=== PATIENT | male | born 1935 | race Caucasian/White ===

== ENCOUNTER 2018-08-13 11:05 | Inpatient (IN) | payer MEDICARE, OTHER ==
[~2018-08-13] VITALS: Ht 177.8 cm; Wt 68.8 kg
[~2018-08-13 11:05] MED LIST: ALBU8.5H5 INH; ALLO100T30 PO; ASPI-496; AZIT500T5 PO; BUDE10.2 INH; CARV12.52; CYAN100T PO; DILT240C PO; ERGO500017 PO; ESOM20CA PO; FLUT16SP NAS; FURO-93 PO; FURO20TA3 PO; KRIL1CAP9 PO; LORA10TA3 PO; METF500T17 PO; POTA20PA25 PO; PRED5TAB PO; SIMV20TA3 PO; TEMA15CA PO; UBID100C24 PO; VALS160T3; VALS1TAB22; WARF2.5T PO
[2018-08-13] MEDS ORDERED: WARF2TAB99 PO (11:24)
[2018-08-13] MEDS ORDERED: SODIUM CHLORIDE FLUSH 10ML SYR IVF ONE (11:30)
[2018-08-13] MEDS ORDERED: ASPIRIN 81 MG TABLET CHEW PO ONE (11:30)
[2018-08-13] MEDS ORDERED: ASPIRIN 81 MG TABLET CHEW ONE (11:51)
[2018-08-13] MEDS ORDERED: PRAV20TA2 PO (11:56)
[2018-08-13] MEDS ORDERED: PHOS250T PO (11:59)
[2018-08-13] MEDS ORDERED: EPLE25TA4 PO ×2 (12:00→12:32)
[2018-08-13] MEDS ORDERED: CHOL5000 PO (12:01)
[2018-08-13 12:15] LABS: BASOPHILS # (AUTO) 0.02 x10^3/uL (0-0.1); BASOPHILS % (AUTO) 0 % (0-1); EOSINOPHILS # (AUTO) 0.03 x10^3/uL (0-0.4); EOSINOPHILS % (AUTO) 0 % (1-7); LYMPHOCYTES # (AUTO) 0.43 x10^3/uL (1-3.4); LYMPHOCYTES % (AUTO) 4 % (22-44); MD NO; MEAN CORPUSCULAR HEMOGLOBIN 32.2 pg (27.5-34.5); MEAN CORPUSCULAR HGB CONC 32.4 g/dL (33.2-36.2); MEAN CORPUSCULAR VOLUME 99.3 fL (81-97); MONOCYTES # (AUTO) 0.43 x10^3/uL (0.2-0.8); MONOCYTES % (AUTO) 4 % (2-9); NEUTROPHILS % (AUTO) 91 % (42-75); PLATELET COUNT 247 x10^3/uL (130-400); RED BLOOD COUNT 4.53 x10^6/uL (4.38-5.82); RED CELL DISTRIBUTION WIDTH 16.8 % (9.4-14.8)
[2018-08-13 12:22] LABS: INTERNATIONAL NORMALIZED RATIO 3.15 (0.93-1.1)
[2018-08-13 12:24] LABS: ALANINE AMINOTRANSFERASE 58 U/L (12-78); ALBUMIN 3.3 g/dL (3.4-5.0); ANION GAP 8 mmol/L (5-15); CALCIUM 9.7 mg/dL (8.5-10.1); CHLORIDE 104 mmol/L (98-107); CREATININE 1.75 mg/dL (0.7-1.3)
[2018-08-13 12:29] LABS: ALKALINE PHOSPHATASE 283 U/L (45-117); TOTAL PROTEIN 6.8 g/dL (6.4-8.2); TROPONIN I 0.127 ng/mL (0.000-0.045)
[2018-08-13] MEDS ORDERED: SILD20TA2 PO (12:29)
[2018-08-13] MEDS ORDERED: FERR325T5 PO (12:29)
[2018-08-13] MEDS ORDERED: PRAV10TA2 PO (12:29)
[2018-08-13] MEDS ORDERED: ASCO250T4 PO (12:29)
[2018-08-13] MEDS ORDERED: FURO-92 PO (12:29)
[2018-08-13] MEDS ORDERED: LACT1CAP24 PO (12:29)
[2018-08-13] MEDS ORDERED: METF500T17 PO (12:29)
[2018-08-13] MEDS ORDERED: CYAN100014 PO (12:29)
[2018-08-13] MEDS ORDERED: METO25TA35 PO (12:30)
[2018-08-13 12:45] LABS: PROTHROMBIN TIME 31.9 Seconds (9.6-11.5)
[2018-08-13] MEDS ORDERED: FUROSEMIDE 40 MG/4 ML IV ONE (13:00)
[2018-08-13] MEDS ORDERED: FUROSEMIDE 40 MG/4 ML ONE (13:02)
[2018-08-13] MEDS ORDERED: SODIUM CHLORIDE FLUSH 10ML SYR IVF PRN (13:30)
[2018-08-13] MEDS ORDERED: NITROGLYCERIN 0.4 MG BOTTLE (25 TABS) SL PRN (14:00)
[2018-08-13] MEDS ORDERED: ALBUTEROL SULFATE 2.5 MG/3 ML NPPB PRN (15:00)
[2018-08-13 15:15] VITALS: BP 107/71
[2018-08-13] MEDS: ALBUTEROL SULFATE 2.5 MG/3 ML NPPB SCH ×2 (15:30→19:00)
[2018-08-13] MEDS ORDERED: CLOPIDOGREL 75 MG TABLET PO STA (16:40)
[2018-08-13] MEDS ORDERED: CLOPIDOGREL 75 MG TABLET PO ONE (17:00)
[2018-08-13] MEDS: ATORVASTATIN 40 MG TABLET PO SCH ×2 (18:48→21:00)
[2018-08-13] MEDS: BUDESONIDE 0.5 MG/2 ML INHA NPPB SCH (19:00)
[2018-08-13 19:42] VITALS: BP 111/60
[2018-08-13] MEDS ORDERED: PRAVASTATIN 20 MG TABLET PO SCH (21:00)
[2018-08-13] MEDS: LACTOBACILLUS CHEW TABLET PO SCH (21:00)
[2018-08-13] MEDS ORDERED: WARFARIN 2 MG TABLET PO-COUM SCH (21:00)
[2018-08-13] MEDS: FLUTICASONE NASAL SPRAY 16GM NAS SCH (21:25)
[2018-08-13] MEDS: SODIUM CHLORIDE FLUSH 10ML SYR IVF SCH (21:25)
[2018-08-13 22:30] VITALS: BP 98/63
[2018-08-14 00:58] VITALS: BP 120/76
[2018-08-14] MEDS: ALBUTEROL/IPRATROPIUM 2.5MG/0.5MG, 3 ML HHN SCH ×4 (02:17→22:12)
[2018-08-14 02:30] LABS: ALBUMIN 3.1 g/dL (3.4-5.0); ANION GAP 9 mmol/L (5-15); CALCIUM 9.7 mg/dL (8.5-10.1); CHLORIDE 106 mmol/L (98-107)
[2018-08-14 02:34] LABS: ALANINE AMINOTRANSFERASE 48 U/L (12-78); ALKALINE PHOSPHATASE 236 U/L (45-117); BILIRUBIN,TOTAL 1.1 mg/dL (0.2-1.0); CREATININE 1.53 mg/dL (0.7-1.3); TOTAL PROTEIN 6.4 g/dL (6.4-8.2)
[2018-08-14 02:55] LABS: INTERNATIONAL NORMALIZED RATIO 2.8 (0.93-1.1); PROTHROMBIN TIME 28.5 Seconds (9.6-11.5)
[2018-08-14 06:59] VITALS: BP 114/71
[2018-08-14] MEDS: CYANOCOBALOMIN 100MCG TABLET PO SCH (07:37)
[2018-08-14] MEDS: LACTOBACILLUS CHEW TABLET PO SCH ×2 (08:48→20:12)
[2018-08-14] MEDS ORDERED: FUROSEMIDE 20 MG TABLET PO SCH (09:00)
[2018-08-14] MEDS: FLUTICASONE NASAL SPRAY 16GM NAS SCH ×2 (09:07→20:12)
[2018-08-14] MEDS: CYANOCOBALAMIN 1,000 MCG TABLET PO SCH (09:07)
[2018-08-14] MEDS: CHOLECALCIFEROL 1,000 UNIT TABLET PO SCH (09:07)
[2018-08-14] MEDS: FERROUS SULFATE 325 MG TABLET PO SCH (09:07)
[2018-08-14] MEDS: FAMOTIDINE 20 MG TABLET PO SCH (09:08)
[2018-08-14] MEDS: ALLOPURINOL 100 MG TABLET PO SCH (09:08)
[2018-08-14] MEDS: METOPROLOL TARTRATE 25 MG TABLET PO SCH (09:08)
[2018-08-14] MEDS: SODIUM CHLORIDE FLUSH 10ML SYR IVF SCH ×2 (09:09→20:13)
[2018-08-14] MEDS: EPLERENONE 50 MG TABLET PO SCH (09:21)
[2018-08-14] MEDS: BUDESONIDE 0.5 MG/2 ML INHA NPPB SCH ×2 (09:42→22:12)
[2018-08-14 12:41] VITALS: BP 109/70
[2018-08-14 16:01] VITALS: BP 119/78
[2018-08-14] MEDS ORDERED: FUROSEMIDE 40 MG/4 ML IV ONE (16:30)
[2018-08-14 18:56] VITALS: BP 104/71
[2018-08-14] MEDS: ATORVASTATIN 40 MG TABLET PO SCH (20:12)
[2018-08-15 01:56] VITALS: BP 101/61
[2018-08-15] MEDS: ALBUTEROL/IPRATROPIUM 2.5MG/0.5MG, 3 ML HHN SCH ×4 (04:00→20:51)
[2018-08-15 05:16] LABS: INTERNATIONAL NORMALIZED RATIO 2.73 (0.93-1.1); PROTHROMBIN TIME 27.8 Seconds (9.6-11.5)
[2018-08-15 05:20] LABS: ALANINE AMINOTRANSFERASE 41 U/L (12-78); ALBUMIN 3.2 g/dL (3.4-5.0); ANION GAP 10 mmol/L (5-15); CALCIUM 8.9 mg/dL (8.5-10.1); CHLORIDE 103 mmol/L (98-107); CREATININE 1.31 mg/dL (0.7-1.3)
[2018-08-15 05:23] LABS: ALKALINE PHOSPHATASE 220 U/L (45-117); BILIRUBIN,TOTAL 0.9 mg/dL (0.2-1.0); TOTAL PROTEIN 6.3 g/dL (6.4-8.2)
[2018-08-15] MEDS: LACTOBACILLUS CHEW TABLET PO SCH ×2 (07:18→20:06)
[2018-08-15 07:33] VITALS: BP 103/67
[2018-08-15] MEDS: CYANOCOBALOMIN 100MCG TABLET PO SCH (07:47)
[2018-08-15] MEDS: CHOLECALCIFEROL 1,000 UNIT TABLET PO SCH (07:48)
[2018-08-15] MEDS: SODIUM CHLORIDE FLUSH 10ML SYR IVF SCH ×2 (07:51→20:06)
[2018-08-15] MEDS: FLUTICASONE NASAL SPRAY 16GM NAS SCH ×2 (07:53→20:05)
[2018-08-15] MEDS: CLOPIDOGREL 75 MG TABLET PO SCH (07:53)
[2018-08-15] MEDS: FERROUS SULFATE 325 MG TABLET PO SCH (07:53)
[2018-08-15] MEDS: EPLERENONE 50 MG TABLET PO SCH (07:54)
[2018-08-15] MEDS: ALLOPURINOL 100 MG TABLET PO SCH (07:54)
[2018-08-15] MEDS: METOPROLOL TARTRATE 25 MG TABLET PO SCH (07:54)
[2018-08-15] MEDS: CYANOCOBALAMIN 1,000 MCG TABLET PO SCH (07:55)
[2018-08-15] MEDS: FUROSEMIDE 20 MG TABLET PO SCH ×2 (07:55→20:05)
[2018-08-15] MEDS: FAMOTIDINE 20 MG TABLET PO SCH (07:56)
[2018-08-15] MEDS ORDERED: REGADENOSON 0.4 MG/5 ML SYRINGE ONE (08:59)
[2018-08-15] MEDS: BUDESONIDE 0.5 MG/2 ML INHA NPPB SCH ×2 (09:40→18:55)
[2018-08-15 13:12] VITALS: BP 98/63
[2018-08-15] MEDS ORDERED: PHYTONADIONE 10 MG/ML, 1ML SQ ONE (16:30)
[2018-08-15 20:04] VITALS: BP 94/61
[2018-08-15] MEDS: ATORVASTATIN 40 MG TABLET PO SCH (20:05)
[2018-08-16] VITALS (9 sets, daily range): BP systolic 70–120; BP diastolic 50–82
[2018-08-16] MEDS: ALBUTEROL/IPRATROPIUM 2.5MG/0.5MG, 3 ML HHN SCH ×4 (02:44→21:13)
[2018-08-16 05:57] LABS: CHLORIDE 103 mmol/L (98-107)
[2018-08-16 06:07] LABS: ALANINE AMINOTRANSFERASE 48 U/L (12-78); ALBUMIN 3.4 g/dL (3.4-5.0); ALKALINE PHOSPHATASE 259 U/L (45-117); ANION GAP 11 mmol/L (5-15); BILIRUBIN,TOTAL 1.2 mg/dL (0.2-1.0); CALCIUM 9.7 mg/dL (8.5-10.1); CREATININE 1.35 mg/dL (0.7-1.3); TOTAL PROTEIN 6.7 g/dL (6.4-8.2)
[2018-08-16 06:33] LABS: PROTHROMBIN TIME 20.6 Seconds (9.6-11.5)
[2018-08-16] MEDS: BUDESONIDE 0.5 MG/2 ML INHA NPPB SCH ×2 (07:48→21:13)
[2018-08-16] MEDS: CYANOCOBALAMIN 1,000 MCG TABLET PO SCH (08:39)
[2018-08-16] MEDS: SODIUM CHLORIDE FLUSH 10ML SYR IVF SCH ×2 (08:39→21:33)
[2018-08-16] MEDS: METOPROLOL TARTRATE 25 MG TABLET PO SCH (08:39)
[2018-08-16] MEDS: FUROSEMIDE 20 MG TABLET PO SCH ×2 (08:41→17:25)
[2018-08-16] MEDS: EPLERENONE 50 MG TABLET PO SCH (08:44)
[2018-08-16] MEDS: CHOLECALCIFEROL 1,000 UNIT TABLET PO SCH (08:47)
[2018-08-16] MEDS: CLOPIDOGREL 75 MG TABLET PO SCH (08:48)
[2018-08-16] MEDS: CYANOCOBALOMIN 100MCG TABLET PO SCH (08:48)
[2018-08-16] MEDS: FAMOTIDINE 20 MG TABLET PO SCH (08:48)
[2018-08-16] MEDS: FERROUS SULFATE 325 MG TABLET PO SCH (08:49)
[2018-08-16] MEDS: LACTOBACILLUS CHEW TABLET PO SCH ×2 (08:49→21:33)
[2018-08-16] MEDS: FLUTICASONE NASAL SPRAY 16GM NAS SCH ×2 (08:50→21:39)
[2018-08-16] MEDS: ALLOPURINOL 100 MG TABLET PO SCH (08:54)
[2018-08-16] MEDS ORDERED: ACETAMINOPHEN 325 MG TABLET PO PRN (16:00)
[2018-08-16] MEDS: DIPHENHYDRAMINE 25 MG CAPSULE PO PRN (21:33)
[2018-08-16] MEDS: ATORVASTATIN 40 MG TABLET PO SCH (21:33)
[2018-08-17 01:57] VITALS: BP 104/73
[2018-08-17] MEDS: ALBUTEROL/IPRATROPIUM 2.5MG/0.5MG, 3 ML HHN SCH ×4 (03:00→20:11)
[2018-08-17] MEDS ORDERED: ONDANSETRON 2MG/ML, 2ML IVPush PRN (05:00)
[2018-08-17 05:42] LABS: INTERNATIONAL NORMALIZED RATIO 1.75 (0.93-1.1); PROTHROMBIN TIME 18.2 Seconds (9.6-11.5)
[2018-08-17 05:47] LABS: ALBUMIN 3.3 g/dL (3.4-5.0); ANION GAP 9 mmol/L (5-15); CALCIUM 9.6 mg/dL (8.5-10.1); CHLORIDE 102 mmol/L (98-107)
[2018-08-17 05:51] LABS: ALANINE AMINOTRANSFERASE 49 U/L (12-78); ALKALINE PHOSPHATASE 271 U/L (45-117); BILIRUBIN,TOTAL 1.3 mg/dL (0.2-1.0); CREATININE 1.72 mg/dL (0.7-1.3); TOTAL PROTEIN 6.7 g/dL (6.4-8.2)
[2018-08-17 06:55] VITALS: BP 111/77
[2018-08-17] MEDS: BUDESONIDE 0.5 MG/2 ML INHA NPPB SCH ×2 (07:25→20:11)
[2018-08-17] MEDS: LACTOBACILLUS CHEW TABLET PO SCH ×2 (08:18→21:35)
[2018-08-17] MEDS: CYANOCOBALAMIN 1,000 MCG TABLET PO SCH (08:18)
[2018-08-17] MEDS: CHOLECALCIFEROL 1,000 UNIT TABLET PO SCH (08:18)
[2018-08-17] MEDS: FAMOTIDINE 20 MG TABLET PO SCH (08:18)
[2018-08-17] MEDS: CLOPIDOGREL 75 MG TABLET PO SCH (08:18)
[2018-08-17] MEDS: SODIUM CHLORIDE FLUSH 10ML SYR IVF SCH ×2 (08:19→21:34)
[2018-08-17] MEDS: METOPROLOL TARTRATE 25 MG TABLET PO SCH ×2 (08:20→08:42)
[2018-08-17] MEDS: CYANOCOBALOMIN 100MCG TABLET PO SCH (08:25)
[2018-08-17] MEDS ORDERED: SODIUM CHLORIDE 0.9% 1,000 ML IV ONE (08:29)
[2018-08-17] MEDS: FLUTICASONE NASAL SPRAY 16GM NAS SCH ×2 (08:33→21:37)
[2018-08-17] MEDS: ALLOPURINOL 100 MG TABLET PO SCH (08:33)
[2018-08-17] MEDS: FERROUS SULFATE 325 MG TABLET PO SCH (08:33)
[2018-08-17] MEDS: EPLERENONE 50 MG TABLET PO SCH (09:00)
[2018-08-17] MEDS: FUROSEMIDE 20 MG TABLET PO SCH ×2 (09:00→21:00)
[2018-08-17] MEDS ORDERED: TICAGRELOR 90 MG TABLET ONE (13:46)
[2018-08-17] MEDS ORDERED: FENTANYL PF 100 MCG/2ML ONE (13:46)
[2018-08-17] MEDS ORDERED: MIDAZOLAM 1 MG/ML, 5ML ONE (13:46)
[2018-08-17] MEDS ORDERED: VERAPAMIL 2.5 MG/ML, 2ML ONE (13:47)
[2018-08-17] MEDS ORDERED: LIDOCAINE-MPF 1%, 5ML ONE (13:47)
[2018-08-17] MEDS ORDERED: BIVALIRUDIN 250 MG ONE (13:47)
[2018-08-17 14:30] VITALS: BP 111/76
[2018-08-17] MEDS ORDERED: ACETAMINOPHEN 325 MG TABLET PO PRN (15:00)
[2018-08-17] MEDS ORDERED: SODIUM CHLORIDE 0.9% 1,000 ML IV SCH (15:00)
[2018-08-17 19:43] VITALS: BP 93/63
[2018-08-17] MEDS: ATORVASTATIN 40 MG TABLET PO SCH (21:35)
[2018-08-17 21:42] VITALS: BP 120/85
[2018-08-18 00:13] VITALS: BP 92/58
[2018-08-18] MEDS: DIPHENHYDRAMINE 25 MG CAPSULE PO PRN (01:09)
[2018-08-18] MEDS: ALBUTEROL/IPRATROPIUM 2.5MG/0.5MG, 3 ML HHN SCH ×3 (02:26→13:50)
[2018-08-18 05:20] LABS: ANION GAP 11 mmol/L (5-15); CALCIUM 10.4 mg/dL (8.5-10.1); CHLORIDE 107 mmol/L (98-107); CREATININE 1.62 mg/dL (0.7-1.3)
[2018-08-18 06:50] VITALS: BP 102/66
[2018-08-18] MEDS: BUDESONIDE 0.5 MG/2 ML INHA NPPB SCH (07:30)
[2018-08-18] MEDS: LACTOBACILLUS CHEW TABLET PO SCH (09:00)
[2018-08-18] MEDS: SODIUM CHLORIDE FLUSH 10ML SYR IVF SCH (09:29)
[2018-08-18] MEDS: FLUTICASONE NASAL SPRAY 16GM NAS SCH (09:29)
[2018-08-18] MEDS: CLOPIDOGREL 75 MG TABLET PO SCH (09:31)
[2018-08-18] MEDS: CHOLECALCIFEROL 1,000 UNIT TABLET PO SCH (09:31)
[2018-08-18] MEDS: EPLERENONE 50 MG TABLET PO SCH (09:32)
[2018-08-18] MEDS: ALLOPURINOL 100 MG TABLET PO SCH (09:33)
[2018-08-18] MEDS: CYANOCOBALAMIN 1,000 MCG TABLET PO SCH (09:33)
[2018-08-18] MEDS: FAMOTIDINE 20 MG TABLET PO SCH (09:34)
[2018-08-18] MEDS: METOPROLOL TARTRATE 25 MG TABLET PO SCH (09:34)
[2018-08-18] MEDS: FERROUS SULFATE 325 MG TABLET PO SCH (09:34)
[2018-08-18] MEDS: FUROSEMIDE 20 MG TABLET PO SCH (09:35)
[2018-08-18] MEDS ORDERED: MORPHINE SULFATE 4 MG/ML, 1ML ONE (13:40)
[2018-08-18 13:55] LABS: INTERNATIONAL NORMALIZED RATIO 1.67 (0.93-1.1); PROTHROMBIN TIME 17.4 Seconds (9.6-11.5)
[2018-08-18] MEDS ORDERED: WARFARIN 3 MG TABLET PO-COUM ONE (18:00)
== END 2018-08-18 13:45 | disposition expired ==
LOC: ED 11:48 → EDIP 13:04 → 5SO 14:57
PROVIDERS: ADMIT Internal Medicine; ATTEND Internal Medicine
PROC: 4A023N8 Measurement of Cardiac Sampling and Pressure, Bilateral, Percutaneous Approach (ICD-10-PCS; principal; 2018-08-17)
PROC: B2111ZZ Fluoroscopy of Multiple Coronary Arteries using Low Osmolar Contrast (ICD-10-PCS; 2018-08-17)
PROC: B2151ZZ Fluoroscopy of Left Heart using Low Osmolar Contrast (ICD-10-PCS; 2018-08-17)
PROC: B2181ZZ Fluoroscopy of Left Internal Mammary Bypass Graft using Low Osmolar Contrast (ICD-10-PCS; 2018-08-17)
PROC: B2131ZZ Fluoroscopy of Multiple Coronary Artery Bypass Grafts using Low Osmolar Contrast (ICD-10-PCS; 2018-08-17)
DX: I21.4 Non-ST elevation (NSTEMI) myocardial infarction (principal); I50.23 Acute on chronic systolic (congestive) heart failure; D68.69 Other thrombophilia; E46 Unspecified protein-calorie malnutrition; J96.11 Chronic respiratory failure with hypoxia; N17.9 Acute kidney failure, unspecified; I25.710 Atherosclerosis of autologous vein coronary artery bypass graft(s) with unstable angina pectoris; I25.110 Atherosclerotic heart disease of native coronary artery with unstable angina pectoris; I48.2 Chronic atrial fibrillation; E11.9 Type 2 diabetes mellitus without complications; E78.5 Hyperlipidemia, unspecified; G47.33 Obstructive sleep apnea (adult) (pediatric); I11.0 Hypertensive heart disease with heart failure; I25.5 Ischemic cardiomyopathy; I27.29 Other secondary pulmonary hypertension; M10.9 Gout, unspecified; I27.81 Cor pulmonale (chronic); J44.9 Chronic obstructive pulmonary disease, unspecified; K21.9 Gastro-esophageal reflux disease without esophagitis; K44.9 Diaphragmatic hernia without obstruction or gangrene; Z66 Do not resuscitate; I95.2 Hypotension due to drugs; T50.905A Adverse effect of unspecified drugs, medicaments and biological substances, initial encounter; Y92.89 Other specified places as the place of occurrence of the external cause; Z79.01 Long term (current) use of anticoagulants; Z86.718 Personal history of other venous thrombosis and embolism; Z88.8 Allergy status to other drugs, medicaments and biological substances; Z86.711 Personal history of pulmonary embolism; Z99.81 Dependence on supplemental oxygen; Z87.891 Personal history of nicotine dependence; Z88.2 Allergy status to sulfonamides; Z88.0 Allergy status to penicillin; Z68.21 Body mass index [BMI] 21.0-21.9, adult
CPT/HCPCS: 36415; 71045; 76705; 78452; 80048; 80053; 82962; 83735; 83880; 84484; 85025; 85610; 93005; 93017; 93306; 93461; 94640; 96374; 99156; 99157; C1760; C1769; C1894; G0378; J0583; J1940; J2250; J2785; J3010; J3430; J7613; J7620; J7626; A9502; C9898; J7030; Q0163; Q9967